=== PATIENT | male | born 1990 | race Caucasian/White ===

== ENCOUNTER 2020-07-18 19:58 | Emergency (ER) | payer OTHER ==
[2020-07-18] MEDS ORDERED: Boostrix 0.5 ML (Tdap) VIAL ONE ×2 (20:33→20:36)
== END 2020-07-18 21:00 | disposition home or self-care (01) ==
LOC: ERS 19:58
DX: T24.231A Burn of second degree of right lower leg, initial encounter (principal); T31.0 Burns involving less than 10% of body surface; G47.30 Sleep apnea, unspecified; I10 Essential (primary) hypertension; Z79.899 Other long term (current) drug therapy; X16.XXXA Contact with hot heating appliances, radiators and pipes, initial encounter; Y92.410 Unspecified street and highway as the place of occurrence of the external cause
CPT/HCPCS: 90471; 90715

== ENCOUNTER 2020-12-21 06:46 | Emergency (ER) | payer OTHER | END 2020-12-21 08:15 | disposition home or self-care (01) | LOC: ERS 06:46 | DX: S69.91XA Unspecified injury of right wrist, hand and finger(s), initial encounter (principal); W22.8XXA Striking against or struck by other objects, initial encounter; I10 Essential (primary) hypertension | CPT/HCPCS: 29125 ==